=== PATIENT | male | born 2005 | race Caucasian/White ===

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

== ENCOUNTER 2024-03-17 22:30 | Emergency (ER) | payer OTHER ==
[~2024-03-17] VITALS: Ht 165.1 cm; Wt 56.8 kg
[2024-03-17 23:33] LABS: HEMATOCRIT 46.8 % (42.0-52.0); HEMOGLOBIN 16.5 g/dl (13.5-17.5); MEAN CORPUSCULAR HEMOGLOBIN 32.5 pg (27.0-33.0); MEAN CORPUSCULAR HGB CONC 35.3 g/dl (32.0-36.5); MEAN CORPUSCULAR VOLUME 92.3 fl (80.0-96.0); PLATELET COUNT, AUTOMATED 255 10^3/uL (150-450); RED BLOOD COUNT 5.07 10^6/uL (4.30-6.10); WHITE BLOOD COUNT 10.9 10^3/uL (4.0-10.0)
[2024-03-17 23:57] LABS: ETHYL ALCOHOL (ETHANOL) < 0.003 % (0.000-0.010)
[2024-03-17 23:59] LABS: ALBUMIN 4.8 G/DL (3.2-5.2); ALKALINE PHOSPHATASE 89 U/L (46-116); ALT/SGPT 17 U/L (7.0-40); AST/SGOT 19 U/L (<34); BILIRUBIN,DIRECT 0.3 MG/DL (<0.4); BILIRUBIN,TOTAL 0.9 MG/DL (0.3-1.2); BLOOD UREA NITROGEN 18 MG/DL (9-23); CALCIUM LEVEL 9.9 MG/DL (8.5-10.1); CARBON DIOXIDE LEVEL 29 MMOL/L (20-31); CHLORIDE LEVEL 104 MMOL/L (98-107); CREATININE FOR GFR 1.13 MG/DL (0.70-1.30); GLUCOSE, FASTING 79 MG/DL (60-100); POTASSIUM SERUM 3.9 MMOL/L (3.5-5.1); SALICYLATE LEVEL < 3.0 MG/DL (<30); SODIUM LEVEL 137 MMOL/L (136-145); TOTAL PROTEIN 7.9 G/DL (5.7-8.2)
[2024-03-18 00:02] LABS: THYROID STIMULATING HORMONE 1.797 uIU/ML (0.48-4.17)
[2024-03-18 01:03] LABS: BARBITURATES URINE NEGATIVE (NEGATIVE); BENZODIAZEPINES URINE NEGATIVE (NEGATIVE); COCAINE METABOLITE URINE NEGATIVE (NEGATIVE); METHADONE URINE NEGATIVE (NEGATIVE); OPIATES URINE NEGATIVE (NEGATIVE); PHENCYCLIDINE URINE NEGATIVE (NEGATIVE)
[2024-03-18 01:17] LABS: AMPHETAMINES LEVEL URINE POSITIVE (NEGATIVE); CANNABINOIDS URINE POSITIVE (NEGATIVE)
[2024-03-18] MEDS ORDERED: HOME MED LIST COMPLETE! XX SCH (02:20)
[2024-03-18 09:17] VITALS: BP 115/76; TEMP 96.8; O2SAT 100
== END 2024-03-18 09:27 | disposition home or self-care (01) ==
LOC: M ED 22:30
DX: F12.10 Cannabis abuse, uncomplicated (principal); F19.10 Other psychoactive substance abuse, uncomplicated; J45.909 Unspecified asthma, uncomplicated; F17.210 Nicotine dependence, cigarettes, uncomplicated; F10.10 Alcohol abuse, uncomplicated

== ENCOUNTER 2024-04-27 12:12 | Emergency (ER) | payer OTHER ==
[~2024-04-27] VITALS: Ht 170.2 cm; Wt 45.9 kg
[2024-04-27] MEDS: NS 1,000 ML IV ONE ×3 (12:52→18:10)
[2024-04-27] MEDS: ONDANSETRON 4MG 2ML VIAL IV ONE (13:01)
[2024-04-27 13:18] LABS: VENOUS BASE EXCESS -8.8 (-2.0-2.0); VENOUS O2 SATURATION 55.4 % (60.0-80.0); VENOUS PARTIAL PRESSURE CO2 58.5 mmHg (38.0-50.0); VENOUS PARTIAL PRESSURE O2 35.1 mmHg (30.0-50.0); VENOUS PH 7.172 UNITS (7.330-7.430); VENOUS STANDARD HCO3 16.6 MMOL/L; VENOUS TOTAL CO2 22.8 MMOL/L (24.0-28.0)
[2024-04-27 13:22] LABS: HEMATOCRIT 56.4 % (42.0-52.0); HEMOGLOBIN 19.7 g/dl (13.5-17.5); MEAN CORPUSCULAR HEMOGLOBIN 31.9 pg (27.0-33.0); MEAN CORPUSCULAR HGB CONC 34.9 g/dl (32.0-36.5); MEAN CORPUSCULAR VOLUME 91.4 fl (80.0-96.0); PLATELET COUNT, AUTOMATED 296 10^3/uL (150-450); RED BLOOD COUNT 6.17 10^6/uL (4.30-6.10); WHITE BLOOD COUNT 23.8 10^3/uL (4.0-10.0)
[2024-04-27 13:43] LABS: PROTHROMBIN TIME 15.6 SECONDS (12.5-14.5)
[2024-04-27 13:44] LABS: INR 1.28; PARTIAL THROMBOPLASTIN TIME 24.9 SECONDS (24.8-34.2)
[2024-04-27 13:48] LABS: ATYPICAL LYMPH 12 % (0-5); BASOPHILS 1 % (0-1); LYMPHOCYTES 11 % (16-44); METAMYELOCYTES 2 % (0-0); MONOCYTES 16 % (0-5); NEUTROPHILS 32 % (28-66)
[2024-04-27 13:49] LABS: SMUDGE CELLS 1+
[2024-04-27 13:50] LABS: PLATELET ESTIMATE NORMAL (NORMAL)
[2024-04-27 13:51] LABS: SALICYLATE LEVEL < 3.0 MG/DL (<30)
[2024-04-27 13:54] LABS: ALBUMIN 2.7 G/DL (3.2-5.2); ALKALINE PHOSPHATASE 142 U/L (46-116); ALT/SGPT 23 U/L (7.0-40); AST/SGOT 43 U/L (<34); BILIRUBIN,DIRECT 0.3 MG/DL (<0.4); BLOOD UREA NITROGEN 55 MG/DL (9-23); CALCIUM LEVEL 10.1 MG/DL (8.5-10.1); CARBON DIOXIDE LEVEL 21 MMOL/L (20-31); CHLORIDE LEVEL 92 MMOL/L (98-107); CREATININE FOR GFR 1.91 MG/DL (0.70-1.30); GLUCOSE, FASTING 163 MG/DL (60-100); POTASSIUM SERUM 4.3 MMOL/L (3.5-5.1); SODIUM LEVEL 131 MMOL/L (136-145); TOTAL PROTEIN 6.7 G/DL (5.7-8.2)
[2024-04-27 14:17] LABS: ACETONE/KETONE 0.18 MMOL/L (0.02-0.27)
[2024-04-27] MEDS ORDERED: MED REC IN PROGRESS XX SCH (14:20)
[2024-04-27] MEDS: NS 1,380 ML in IV 1 EA IV ONE (14:31)
[2024-04-27] MEDS: cefTRIAXone SOD 2 GM in D5W MINI-BAG PLUS 50 ML IV ONE (14:35)
[2024-04-27] MEDS ORDERED: HOME MED LIST COMPLETE! XX SCH (14:35)
[2024-04-27] MEDS: PIPERACILLIN/TAZOBACTAM SOD 4.5 GM in D5W MINI-BAG PLUS 50 ML IV ONE (16:06)
[2024-04-27] MEDS: metroNIDAZOLE 500 MG in IV 1 EA IV ONE (18:16)
[2024-04-27 18:30] VITALS: BP 97/62
[2024-04-27 18:31] VITALS: TEMP 96.5; O2SAT 98
== END 2024-04-27 18:41 | disposition short-term general hospital (02) ==
LOC: M ED 12:12 → EDBD 12:12 → M ED 18:41
DX: K22.3 Perforation of esophagus (principal); A41.9 Sepsis, unspecified organism; J98.2 Interstitial emphysema; A04.72 Enterocolitis due to Clostridium difficile, not specified as recurrent
CPT/HCPCS: 36556; 71250; 74176; 80048; 80076; 80143; 82010; 82803; 83605; 85025; 85610; 85730; 86850; 86900; 86901; 86920; 87040; 87324; 87507; 93005; 93041; 94760; 96361; 96365; 96366; 96374; 99285; J0696; J1836; J2405; J2543

== ENCOUNTER 2024-05-27 12:41 | Emergency (ER) | payer OTHER ==
[~2024-05-27] VITALS: Ht 160 cm; Wt 45.4 kg
[~2024-05-27 12:41] MED LIST changes: +FLOR250C PO; +HYDR1TAB33 PO; +LACT20EL PO; +LASI40TA9 PO; +PANT40TA29 PO; +SPIR100T3 PO; +SUCR1TA PO
[2024-05-27 14:03] LABS: BASO # 0.1 10^3/uL (0.0-0.2); BASO % 0.6 % (0.0-1.0); HEMATOCRIT 32.4 % (42.0-52.0); HEMOGLOBIN 10.4 g/dl (13.5-17.5); LYMPH # 2.2 10^3/uL (1.5-5.0); LYMPH % 9.4 % (24.0-44.0); MEAN CORPUSCULAR HEMOGLOBIN 31.7 pg (27.0-33.0); MEAN CORPUSCULAR HGB CONC 32.1 g/dl (32.0-36.5); MEAN CORPUSCULAR VOLUME 98.8 fl (80.0-96.0); MONO # 1.3 10^3/uL (0.0-0.8); MONO % 5.4 % (2.0-8.0); NEUTROPHILS # 19.7 10^3/uL (1.5-8.5); PLATELET COUNT, AUTOMATED 703 10^3/uL (150-450); RED BLOOD COUNT 3.28 10^6/uL (4.30-6.10); WHITE BLOOD COUNT 23.5 10^3/uL (4.0-10.0)
[2024-05-27 14:25] LABS: LIPASE 37 U/L (12-53)
[2024-05-27 14:33] LABS: ALBUMIN 2.6 G/DL (3.2-5.2); ALKALINE PHOSPHATASE 83 U/L (46-116); ALT/SGPT 15 U/L (7.0-40); AST/SGOT 11 U/L (<34); BILIRUBIN,DIRECT 0.1 MG/DL (<0.4); BILIRUBIN,TOTAL 0.4 MG/DL (0.3-1.2); BLOOD UREA NITROGEN 10 MG/DL (9-23); CALCIUM LEVEL 8.7 MG/DL (8.5-10.1); CARBON DIOXIDE LEVEL 28 MMOL/L (20-31); CHLORIDE LEVEL 104 MMOL/L (98-107); CREATININE FOR GFR 0.59 MG/DL (0.70-1.30); GLUCOSE, FASTING 109 MG/DL (60-100); POTASSIUM SERUM 3.5 MMOL/L (3.5-5.1); SODIUM LEVEL 137 MMOL/L (136-145); TOTAL PROTEIN 6.7 G/DL (5.7-8.2)
[2024-05-27] MEDS: NS 1,360 ML in IV 1 EA IV ONE (15:55)
[2024-05-27] MEDS ORDERED: ISOVUE-370 76% 100ML VIAL As Ordered ONE (16:02)
[2024-05-27] MEDS: ACETAMINOPHEN *IV* 1,000 MG in IV 1 EA IV ONE (16:27)
[2024-05-27 16:30] LABS: AMPHETAMINES LEVEL URINE NEGATIVE (NEGATIVE); BARBITURATES URINE NEGATIVE (NEGATIVE); BENZODIAZEPINES URINE NEGATIVE (NEGATIVE); COCAINE METABOLITE URINE NEGATIVE (NEGATIVE); METHADONE URINE NEGATIVE (NEGATIVE)
[2024-05-27 16:31] LABS: CANNABINOIDS URINE POSITIVE (NEGATIVE); OPIATES URINE NEGATIVE (NEGATIVE); PHENCYCLIDINE URINE NEGATIVE (NEGATIVE)
[2024-05-27] MEDS: PIPERACILLIN/TAZOBACTAM SOD 3.375 GM in DEXTROSE 5% (D5W) ADV/MINI-BAG 50 ML IV ONE (16:45)
[2024-05-27] MEDS ORDERED: HOME MED LIST COMPLETE! XX SCH (17:45)
[2024-05-27 18:45] VITALS: BP 123/81; TEMP 98.7; O2SAT 99
[2024-05-27] MEDS ORDERED: VANC125C3 PO (19:06)
== END 2024-05-27 19:28 | disposition left against medical advice (07) ==
LOC: M ED 12:41
DX: K52.9 Noninfective gastroenteritis and colitis, unspecified (principal); A41.9 Sepsis, unspecified organism; Z53.20 Procedure and treatment not carried out because of patient's decision for unspecified reasons; A04.72 Enterocolitis due to Clostridium difficile, not specified as recurrent; Z86.718 Personal history of other venous thrombosis and embolism; K76.6 Portal hypertension; R18.8 Other ascites; G93.41 Metabolic encephalopathy; K76.9 Liver disease, unspecified; Z79.899 Other long term (current) drug therapy
CPT/HCPCS: 71250; 74177; 80048; 80076; 80307; 81001; 82140; 83605; 83690; 83880; 85025; 87040; 93005; 96361; 96365; 96366; 96368; 99285; J0131; J2543; Q9967

== ENCOUNTER 2024-05-28 01:59 | Emergency (ER) | payer OTHER ==
[~2024-05-28] VITALS: Ht 170.2 cm; Wt 46.0 kg
[~2024-05-28 01:59] MED LIST changes: +VANC125C3 PO
[2024-05-28 03:40] LABS: VENOUS BASE EXCESS -0.3 (-2.0-2.0); VENOUS PARTIAL PRESSURE CO2 37.9 mmHg (38.0-50.0); VENOUS PARTIAL PRESSURE O2 58.3 mmHg (30.0-50.0); VENOUS STANDARD HCO3 24.1 MMOL/L; VENOUS TOTAL CO2 25.2 MMOL/L (24.0-28.0)
[2024-05-28] MEDS: NS 1,380 ML in IV 1 EA IV ONE (03:40)
[2024-05-28] MEDS ORDERED: ACETAMINOPHEN 500 MG TAB PO ONE (03:40)
[2024-05-28 03:54] LABS: BASO # 0.2 10^3/uL (0.0-0.2); BASO % 0.6 % (0.0-1.0); HEMATOCRIT 29.9 % (42.0-52.0); HEMOGLOBIN 9.7 g/dl (13.5-17.5); LYMPH # 2.6 10^3/uL (1.5-5.0); LYMPH % 9.4 % (24.0-44.0); MEAN CORPUSCULAR HEMOGLOBIN 31.6 pg (27.0-33.0); MEAN CORPUSCULAR HGB CONC 32.4 g/dl (32.0-36.5); MEAN CORPUSCULAR VOLUME 97.4 fl (80.0-96.0); MONO # 1.4 10^3/uL (0.0-0.8); MONO % 5.1 % (2.0-8.0); NEUTROPHILS % 84.1 % (36.0-66.0); PLATELET COUNT, AUTOMATED 670 10^3/uL (150-450); RED BLOOD COUNT 3.07 10^6/uL (4.30-6.10); WHITE BLOOD COUNT 27.3 10^3/uL (4.0-10.0)
[2024-05-28] MEDS: ACETAMINOPHEN *IV* 1,000 MG in IV 1 EA IV ONE (03:56)
[2024-05-28] MEDS: ONDANSETRON 4MG 2ML VIAL IV ONE ×2 (03:57→06:15)
[2024-05-28 04:06] LABS: INR 1.37; PARTIAL THROMBOPLASTIN TIME 35.3 SECONDS (24.8-34.2); PROTHROMBIN TIME 16.5 SECONDS (12.5-14.5)
[2024-05-28 04:14] LABS: AMYLASE 57 U/L (30-118)
[2024-05-28 04:24] LABS: PROCALCITONIN 0.17 ng/ml
[2024-05-28 04:25] LABS: ALBUMIN 2.5 G/DL (3.2-5.2); ALKALINE PHOSPHATASE 79 U/L (46-116); ALT/SGPT 12 U/L (7.0-40); AST/SGOT 9 U/L (<34); BILIRUBIN,DIRECT 0.1 MG/DL (<0.4); BILIRUBIN,TOTAL 0.3 MG/DL (0.3-1.2); BLOOD UREA NITROGEN 8 MG/DL (9-23); CALCIUM LEVEL 8.2 MG/DL (8.5-10.1); CARBON DIOXIDE LEVEL 27 MMOL/L (20-31); CHLORIDE LEVEL 103 MMOL/L (98-107); CREATININE FOR GFR 0.59 MG/DL (0.70-1.30); GLUCOSE, FASTING 92 MG/DL (60-100); POTASSIUM SERUM 3.4 MMOL/L (3.5-5.1); SODIUM LEVEL 134 MMOL/L (136-145); TOTAL PROTEIN 6.2 G/DL (5.7-8.2)
[2024-05-28] MEDS: NS 1,000 ML IV ONE (05:20)
[2024-05-28] MEDS: CEFEPIME HCL 1 GM in DEXTROSE 5% (D5W) ADV/MINI-BAG 50 ML IV ONE (06:15)
[2024-05-28] MEDS ORDERED: ISOVUE-370 76% 100ML VIAL As Ordered ONE (06:41)
[2024-05-28 09:11] LABS: APPEARANCE, URINE HAZY (CLEAR); BACTERIA, URINE AUTO NEGATIVE (NEGATIVE); BILIRUBIN, URINE AUTO NEGATIVE (NEGATIVE); BLOOD, URINE BLOOD NEGATIVE (NEGATIVE); COLOR, URINE YELLOW (YELLOW); GLUCOSE, URINE (UA) AUTO NEGATIVE (NEGATIVE); KETONE, URINE AUTO NEGATIVE (NEGATIVE); LEUKOCYTE ESTERASE, URINE AUTO NEGATIVE (NEGATIVE); MUCUS, URINE SMALL (NEGATIVE); NITRITE, URINE AUTO NEGATIVE (NEGATIVE); PROTEIN, URINE AUTO 1+ mg/dL (NEGATIVE); RBC, URINE AUTO 2 /HPF (0-3); SPECIFIC GRAVITY URINE AUTO 1.049 (1.002-1.035); SQUAMOUS EPITHELIAL CELL UR AU 0 /HPF (0-6); UROBILINOGEN, URINE AUTO 0.2 mg/dL (0.0-2.0); WBC, URINE AUTO 2 /HPF (0-3)
[2024-05-28] MEDS: POTASSIUM CHLORIDE 10MEQ SR TABLET PO ONE (12:06)
[2024-05-28] MEDS: FIDAXOMICIN 200 MG TAB (DIFICID) PO SCH (13:58)
[2024-05-28 14:30] VITALS: BP 132/82; O2SAT 96
[2024-05-28 14:40] VITALS: TEMP 101.2
[2024-05-28] MEDS: IBUPROFEN 400MG TAB PO ONE (14:54)
== END 2024-05-28 15:00 | disposition short-term general hospital (02) ==
LOC: EEVIPCON 01:59 → M ED 01:59
DX: A04.72 Enterocolitis due to Clostridium difficile, not specified as recurrent (principal); K76.9 Liver disease, unspecified; R00.0 Tachycardia, unspecified; I45.81 Long QT syndrome; Z79.899 Other long term (current) drug therapy
CPT/HCPCS: 71045; 74176; 80048; 80076; 81001; 82150; 82803; 83605; 84145; 85025; 85610; 85730; 86140; 86850; 86900; 86901; 87040; 87088; 87186; 87324; 87486; 87507; 87581; 87633; 87798; 93005; 93041; 94760; 96361; 96365; 96366; 96375; 96376; 99285; J0131; J0692; J2405

== ENCOUNTER → 2024-06-14 | Outpatient (CLI) | payer OTHER ==
[2024-06-14 17:56] LABS: BASO # 0.1 10^3/uL (0.0-0.2); BASO % 0.6 % (0.0-1.0); EOS % 0.1 % (0.0-3.0); HEMATOCRIT 33.2 % (42.0-52.0); HEMOGLOBIN 10.3 g/dl (13.5-17.5); LYMPH # 1.4 10^3/uL (1.5-5.0); LYMPH % 9.7 % (24.0-44.0); MEAN CORPUSCULAR HEMOGLOBIN 30.4 pg (27.0-33.0); MEAN CORPUSCULAR VOLUME 97.9 fl (80.0-96.0); MONO # 0.1 10^3/uL (0.0-0.8); MONO % 0.9 % (2.0-8.0); NEUTROPHILS # 12.2 10^3/uL (1.5-8.5); NEUTROPHILS % 88.3 % (36.0-66.0); PLATELET COUNT, AUTOMATED 359 10^3/uL (150-450); RED BLOOD COUNT 3.39 10^6/uL (4.30-6.10); WHITE BLOOD COUNT 13.9 10^3/uL (4.0-10.0)
[2024-06-14 18:28] LABS: HIV 1&2 SCREEN NEGATIVE (NEGATIVE)
[2024-06-14 18:36] LABS: HEPATITIS C VIRUS ABY INDEX 0.05 INDEX (<0.8)
[2024-06-14 18:37] LABS: ALBUMIN 3.2 G/DL (3.2-5.2); ALKALINE PHOSPHATASE 83 U/L (40-129); ALT/SGPT 38 U/L (7.0-40); AST/SGOT 25 U/L (<34); BILIRUBIN,TOTAL 0.2 MG/DL (0.3-1.2); BLOOD UREA NITROGEN 10 MG/DL (9-23); CALCIUM LEVEL 9.3 MG/DL (8.5-10.1); CARBON DIOXIDE LEVEL 27 MMOL/L (20-31); CHLORIDE LEVEL 107 MMOL/L (98-107); CREATININE FOR GFR 0.48 MG/DL (0.70-1.30); GLUCOSE, FASTING 97 MG/DL (60-100); POTASSIUM SERUM 4.8 MMOL/L (3.5-5.1); SODIUM LEVEL 140 MMOL/L (136-145); TOTAL PROTEIN 7.2 G/DL (5.7-8.2)
== END ==
LOC: M LAB 16:28
PROVIDERS: ATTEND Nurse Practitioner Family
DX: K74.60 Unspecified cirrhosis of liver (principal)

== ENCOUNTER → 2024-06-16 | Outpatient (REF) | payer OTHER ==
[2024-06-16 18:34] LABS: BASO # 0.1 10^3/uL (0.0-0.2); BASO % 0.9 % (0.0-1.0); EOS # 0.4 10^3/uL (0.0-0.5); EOS % 2.7 % (0.0-3.0); HEMATOCRIT 33.8 % (42.0-52.0); HEMOGLOBIN 10.4 g/dl (13.5-17.5); LYMPH # 4.1 10^3/uL (1.5-5.0); LYMPH % 30.8 % (24.0-44.0); MEAN CORPUSCULAR HEMOGLOBIN 30.3 pg (27.0-33.0); MEAN CORPUSCULAR HGB CONC 30.8 g/dl (32.0-36.5); MEAN CORPUSCULAR VOLUME 98.5 fl (80.0-96.0); MONO # 1.2 10^3/uL (0.0-0.8); MONO % 8.7 % (2.0-8.0); NEUTROPHILS # 7.5 10^3/uL (1.5-8.5); NEUTROPHILS % 56.4 % (36.0-66.0); PLATELET COUNT, AUTOMATED 384 10^3/uL (150-450); RED BLOOD COUNT 3.43 10^6/uL (4.30-6.10); WHITE BLOOD COUNT 13.2 10^3/uL (4.0-10.0)
[2024-06-16 18:37] LABS: BLOOD UREA NITROGEN 11 MG/DL (9-23); CALCIUM LEVEL 9.3 MG/DL (8.5-10.1); CARBON DIOXIDE LEVEL 28 MMOL/L (20-31); CHLORIDE LEVEL 107 MMOL/L (98-107); CREATININE FOR GFR 0.51 MG/DL (0.70-1.30); GLUCOSE, FASTING 63 MG/DL (60-100); SODIUM LEVEL 140 MMOL/L (136-145)
[2024-06-16 18:39] LABS: THYROID STIMULATING HORMONE 1.798 uIU/ML (0.48-4.17)
== END ==
LOC: M LAB REF 16:14
PROVIDERS: ATTEND Nurse Practitioner Family
DX: R00.0 Tachycardia, unspecified (principal); K74.60 Unspecified cirrhosis of liver

== ENCOUNTER → 2024-06-21 | Outpatient (CLI) | payer OTHER ==
[2024-06-21 14:20] VITALS: BP 130/68; TEMP 98.6; O2SAT 100
== END ==
LOC: M IRPRO 14:09
PROVIDERS: ATTEND Hospitalist
DX: K74.60 Unspecified cirrhosis of liver (principal); K72.90 Hepatic failure, unspecified without coma

== ENCOUNTER → 2024-11-01 | Outpatient (REF) | payer OTHER ==
[~2024-11-01] MED LIST changes: +VANC125C13 PO; -VANC125C3 PO
[2024-11-01 15:56] LABS: BASO % 0.4 % (0.0-1.0); EOS # 0.1 10^3/uL (0.0-0.5); HEMATOCRIT 42.2 % (42.0-52.0); HEMOGLOBIN 13.2 g/dl (13.5-17.5); LYMPH # 2.7 10^3/uL (1.5-5.0); LYMPH % 38.2 % (24.0-44.0); MEAN CORPUSCULAR HEMOGLOBIN 28.5 pg (27.0-33.0); MEAN CORPUSCULAR HGB CONC 31.3 g/dl (32.0-36.5); MEAN CORPUSCULAR VOLUME 91.1 fl (80.0-96.0); MONO # 0.6 10^3/uL (0.0-0.8); MONO % 7.8 % (2.0-8.0); NEUTROPHILS # 3.7 10^3/uL (1.5-8.5); NEUTROPHILS % 52.2 % (36.0-66.0); PLATELET COUNT, AUTOMATED 245 10^3/uL (150-450); RED BLOOD COUNT 4.63 10^6/uL (4.30-6.10); WHITE BLOOD COUNT 7.2 10^3/uL (4.0-10.0)
[2024-11-01 16:16] LABS: ALBUMIN 4.1 G/DL (3.2-5.2); ALKALINE PHOSPHATASE 72 U/L (40-129); ALT/SGPT 18 U/L (7.0-40); AST/SGOT 13 U/L (<34); BILIRUBIN,TOTAL 0.4 MG/DL (0.3-1.2); BLOOD UREA NITROGEN 9 MG/DL (9-23); CALCIUM LEVEL 9.7 MG/DL (8.5-10.1); CARBON DIOXIDE LEVEL 28 MMOL/L (20-31); CHLORIDE LEVEL 106 MMOL/L (98-107); CREATININE FOR GFR 0.75 MG/DL (0.70-1.30); GLUCOSE, FASTING 83 MG/DL (60-100); POTASSIUM SERUM 4.4 MMOL/L (3.5-5.1); SODIUM LEVEL 142 MMOL/L (136-145); TOTAL PROTEIN 7.5 G/DL (5.7-8.2)
== END ==
LOC: M LAB REF 15:13
PROVIDERS: ATTEND Student in an Organized Health Care Education/Training Program
DX: K74.60 Unspecified cirrhosis of liver (principal)

== ENCOUNTER → 2024-12-15 | Outpatient (CLI) | payer OTHER ==
[~2024-12-15] MED LIST changes: +FAMO1TAB11
== END ==
LOC: M RAD 13:22
PROVIDERS: ATTEND Internal Medicine Medical Oncology
DX: I87.1 Compression of vein (principal)

== ENCOUNTER → 2025-05-25 | Outpatient (REF) | payer OTHER ==
[2025-05-25 16:36] LABS: APPEARANCE, URINE CLEAR (CLEAR); BACTERIA, URINE AUTO NEGATIVE (NEGATIVE); BILIRUBIN, URINE AUTO NEGATIVE (NEGATIVE); BLOOD, URINE BLOOD NEGATIVE (NEGATIVE); GLUCOSE, URINE (UA) AUTO NEGATIVE (NEGATIVE); KETONE, URINE AUTO NEGATIVE (NEGATIVE); LEUKOCYTE ESTERASE, URINE AUTO NEGATIVE (NEGATIVE); MUCUS, URINE SMALL (NEGATIVE); NITRITE, URINE AUTO NEGATIVE (NEGATIVE); PROTEIN, URINE AUTO 2+ mg/dL (NEGATIVE); RBC, URINE AUTO 0 /HPF (0-3); SPECIFIC GRAVITY URINE AUTO 1.029 (1.002-1.035); SQUAMOUS EPITHELIAL CELL UR AU 0 /HPF (0-6); UROBILINOGEN, URINE AUTO 2.0 mg/dL (0.0-2.0); WBC, URINE AUTO 1 /HPF (0-3)
[2025-05-25 17:03] LABS: ALT/SGPT 16 U/L (7.0-40); AST/SGOT 19 U/L (<34); CALCIUM LEVEL 9.9 MG/DL (8.5-10.1); CARBON DIOXIDE LEVEL 29 MMOL/L (20-31); CHLORIDE LEVEL 103 MMOL/L (98-107); CREATININE FOR GFR 0.74 MG/DL (0.70-1.30); GLOMERULAR FILTRATION RATE > 90.0 (>60); POTASSIUM SERUM 4.9 MMOL/L (3.5-5.1); SODIUM LEVEL 140 MMOL/L (136-145)
[2025-05-25 17:05] LABS: FREE T4 1.03 NG/DL (0.89-1.76)
[2025-05-25 17:19] LABS: BASO # 0.1 10^3/uL (0.0-0.2); BASO % 1.3 % (0.0-1.0); EOS # 0.1 10^3/uL (0.0-0.5); EOS % 1.4 % (0.0-3.0); LYMPH # 2.3 10^3/uL (1.5-5.0); LYMPH % 32.5 % (24.0-44.0); MONO # 0.6 10^3/uL (0.0-0.8); MONO % 8.8 % (2.0-8.0); NEUTROPHILS # 4.0 10^3/uL (1.5-8.5); NEUTROPHILS % 55.6 % (36.0-66.0); PLATELET COUNT, AUTOMATED 240 10^3/uL (150-450)
[2025-05-25 18:27] LABS: ESTIMATED AVERAGE GLUCOSE 100.0 MG/DL (60-110)
== END ==
LOC: M LAB REF 16:18
PROVIDERS: ATTEND Nurse Practitioner Family
DX: R63.4 Abnormal weight loss (principal)

== ENCOUNTER → 2025-07-11 | Outpatient (CLI) | payer OTHER ==
[~2025-07-11] MED LIST changes: +FERR325T3 PO
== END ==
LOC: M ONCM 07:57
PROVIDERS: ATTEND Dietitian, Registered
DX: Z71.3 Dietary counseling and surveillance (principal); I82.419 Acute embolism and thrombosis of unspecified femoral vein; I82.429 Acute embolism and thrombosis of unspecified iliac vein

== ENCOUNTER → 2025-07-26 | Outpatient (CLI) | payer OTHER | LOC: M ONCM 14:02 | PROVIDERS: ATTEND Dietitian, Registered | DX: Z71.3 Dietary counseling and surveillance (principal); I82.419 Acute embolism and thrombosis of unspecified femoral vein; I82.429 Acute embolism and thrombosis of unspecified iliac vein; Z68.1 Body mass index [BMI] 19.9 or less, adult ==